=== PATIENT | female | born 1935 | race Caucasian/White ===

== ENCOUNTER 2017-02-17 15:46 | Outpatient (CLI) | payer MEDICARE, OTHER ==
[2017-02-17 19:15] LABS: Anion Gap 18 mmol/L (10-20); BUN (Urea Nitrogen) 16 mg/dL (9.8-20.1); Calc. Creatinine Clearance 0 mL/min (70-130); Calcium 9.4 mg/dL (7.8-10.44); Carbon Dioxide 23 mmol/L (23-31); Chloride 103 mmol/L (98-107); Estimated GFR-MDRD 30; Glucose 147 mg/dL (83-110); Potassium 4.6 mmol/L (3.5-5.1); Sodium 139 mmol/L (136-145)
[2017-02-17 21:58] LABS: Hemoglobin 10.4 g/dL (12.0-16.0); Mean Corpuscular HGB CONC 31.7 g/dL (32.0-36.0); Mean Corpuscular Hemoglobin 27.7 pg (27.0-31.0); Mean Corpuscular Volume 87.4 fl (81.0-99.0); Mean Platelet Volume 11.1 fL (7.4-10.4); Platelet Count 49 thou/uL (130-400); RBC Distribution Width 19.2 % (11.5-14.5); Red Blood Cell (RBC) Count 3.76 mill/uL (4.20-5.40); White Blood Cell (WBC) Count 7.6 thou/uL (4.8-10.8)
[2017-02-18 15:29] LABS: Manual Diff?? YES
[2017-02-18 19:17] LABS: Acanthocytes SLIGHT = 1-5 cells (100X) (None Seen); Eosinophils 1 % (0-10); Lymphocytes 52 % (21-51); MDiff Complete? YES; Monocytes 4 % (0-10); Neutrophil 4 % (42-75); Nucleated RBC 2 % (0); Ovalocytes SLIGHT = 2-5 cells (100X) (0-1/hpf); PLT Morphology Comment Appears Decreased; Poikilocytosis MODERATE=16-30 cells (100X) (0-5/hpf); Polychromasia SLIGHT = 2-3 cells (100X) (0-2/hpf)
== END 2017-02-17 15:47 | disposition home or self-care (01) ==
LOC: NAV LAB 15:46
PROVIDERS: ATTEND Internal Medicine Gastroenterology
DX: R19.7 Diarrhea, unspecified (principal); R50.9 Fever, unspecified
CPT/HCPCS: 36415; 80048; 85025; 85027; 85060; 87015; 87045; 87046; 87177; 87324; 87449; 87899